=== PATIENT | male | born 1985 | race Caucasian/White ===

== ENCOUNTER 2017-07-03 13:02 | Emergency (ER) | payer OTHER ==
[2017-07-03 13:54] VITALS: BP 136/83
--- NOTE | 2017-07-03 14:26 | UC ---
Skin Complaint HPI - HPI Summary HPI Summary: Dropped a container of pickles on end of left great toe yesterday--skin avulsion no bleeding bed of wound beefy red and clean - History of Current Complaint Chief Complaint: UCLowerExtremity Time Seen by Provider: 07/03/17 14:15 Stated Complaint: TOE INJURY Hx Obtained From: Patient Onset/Duration: Sudden Onset, Lasting Days - 1 Skin Exposure Onset/Duration: Days Ago - 1 Timing: Constant Onset Severity: Mild Current Severity: Mild Location: Discrete - tip of left great toe Aggravating Factor(s): Nothing Alleviating Factor(s): Nothing Associated Signs & Symptoms: Positive: Negative - Allergy/Home Medications Allergies/Adverse Reactions: Allergies Allergy/AdvReac Type Severity Reaction Status Date / Time Dust Allergy Sneezing Uncoded 07/03/17 13:54 Home Medications: Home Medications Humulog 07/03/17 [History] Ramipril CAP* [Altace CAP*] 1 cap PO BEDTIME 07/03/17 [History Confirmed ] Review of Systems Constitutional: Negative Skin: Other - skin avulsion tip of left great toe Eyes: Negative ENT: Negative Respiratory: Negative Cardiovascular: Negative Gastrointestinal: Negative Genitourinary: Negative Motor: Negative Neurovascular: Negative Musculoskeletal: Negative Neurological: Negative Psychological: Negative Is Patient Immunocompromised?: No All Other Systems Reviewed And Are Negative: Yes PMH/Surg Hx/FS Hx/Imm Hx Previously Healthy: No Endocrine History: Diabetes - Surgical History Surgical History: None - Family History Known Family History: Positive: None - Social History Occupation: Employed Full-time Lives: With Family Alcohol Use: Rare Substance Use Type: None Smoking Status (MU): Never Smoked Tobacco - Immunization History Most Recent Tetanus Shot: thinks last year Physical Exam Triage Information Reviewed: Yes Appearance: Well-Appearing, No Pain Distress, Well-Nourished Vital Signs: Initial Vital Signs Temp 98.1 F 07/03/17 13:49 Pulse 88 07/03/17 13:49 Resp 16 07/03/17 13:49 BP 136/83 07/03/17 13:49 Pulse Ox 100 07/03/17 13:49 Vital Signs Reviewed: Yes Eye Exam: Normal Eyes: Positive: Conjunctiva Clear ENT Exam: Normal ENT: Positive: Normal ENT inspection, Hearing grossly normal. Negative: Nasal congestion, Nasal drainage, Trismus, Muffled/hoarse voice Dental Exam: Normal Neck exam: Normal Neck: Positive: Supple, Nontender Respiratory Exam: Normal Respiratory: Positive: Chest non-tender, No respiratory distress, No accessory muscle use Cardiovascular Exam: Normal Cardiovascular: Positive: RRR, Pulses Normal, Brisk Capillary Refill Musculoskeletal Exam: Normal Musculoskeletal: Positive: Strength Intact, ROM Intact, No Edema Neurological Exam: Normal Neurological: Positive: Alert, Muscle Tone Normal Psychological Exam: Normal Psychological: Positive: Normal Response To Family Skin Exam: Other Skin: Positive: Other - thin piece of skin avulsed off tip of left toe yesterday --skin has partially reattached but is not well approximated Course/Dx - Course Course Of Treatment: soap and water wash with warm soaks 3-4 times a days vaseline gauze and dressing, post op shoe, antibiodics and wound culture--- follow with pcp - Differential Diagnoses - Skin Complaint Differential Diagnoses: Cellulitis - Diagnoses Provider Diagnoses: Skin avulsion left great toe, DM T1 Discharge - Discharge Plan Condition: Stable Disposition: HOME Prescriptions: Amoxicillin/Clavulanate TAB* [Augmentin TAB 875*] 875 mg PO BID #20 tab Patient Education Materials: Laceration Without Closure (ED), Warm Compress or Soak (ED) Referrals: Salma Daly [Primary Care Provider] - Additional Instructions: Change dressing daily after warm soap and water wash and soak Follow with Podiatry on Thursday as planned
== END 2017-07-03 15:05 | disposition home or self-care (01) ==
LOC: UCEAST 13:02
DX: S91.112A Laceration without foreign body of left great toe without damage to nail, initial encounter (principal); E10.9 Type 1 diabetes mellitus without complications; W20.8XXA Other cause of strike by thrown, projected or falling object, initial encounter; Y92.9 Unspecified place or not applicable
CPT/HCPCS: 87070; 87077; 87205; 87640; 87641; 99213; G0463